=== PATIENT | male | born 1995 | race Caucasian/White ===

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

== ENCOUNTER 2019-02-16 22:10 | Emergency (ER) | payer BC ==
[~2019-02-16] VITALS: Ht 195.6 cm; Wt 104.5 kg
[2019-02-16] MEDS ORDERED: AMOXICILLIN 8751 TAB PO (22:44)
[2019-02-16 23:00] VITALS: BP 126/86; PULSE 86; TEMP 98.2
== END 2019-02-16 23:05 | disposition home or self-care (01) ==
LOC: COL.ER 22:10
DX: J32.9 Chronic sinusitis, unspecified (principal)